=== PATIENT | female | born 1950 ===

== ENCOUNTER 2018-06-16 08:43 | Day surgery (SDC) | payer MEDICARE ==
[~2018-06-16 08:43] MED LIST: Acetaminophen TAB* 325 MG PO PRN; Buffered Lidocaine 0.9% SYRIN* 5 ML/SYR SYRINGE INTRADERM ONE; Cyclopentolate 1% OPTH.SOL* 2 ML BTL ONE; Ketorolac 0.5% OPHTH (NF) 0.5 % 5 ML BTL ONE; Lidocaine 1%* 5 ML VIAL ONE; Neomycin/Polymy/Dex OPHTH.OIN* 3.5 GM ONE; Phenylephrine 2.5% OPTH.SOL* 2 ML BTL ONE; Povidone Iodine 5% OPTH* 30 ML BTL ONE; Tetracaine 0.5% OPTH.SOL 4 ML* 1 DROP BTL ONE; Tropicamide 1% OPTH.SOL* BTL ONE; acetaZOLAMIDE TAB* 250 MG ONE
[2018-06-16] MEDS ORDERED: fentaNYL* 50 MCG/ML 2 ML VIAL (100 MCG VIAL) ONE (10:37)
[2018-06-16] MEDS ORDERED: Midazolam* 1 MG/ML 2 ML VIAL (2 MG) ONE ×2 (10:38→11:24)
[2018-06-16 11:53] VITALS: BP 105/58
--- NOTE | 2018-06-16 22:17 | OP ---
OPERATIVE REPORT: DATE OF OPERATION: 06/16/18 - [facility] DATE OF : 46 SURGEON: Chavo Damon MD ANESTHESIA: Monitored anesthesia care. PRE-OP DIAGNOSIS: Cataract, right eye. POST-OP DIAGNOSIS: Cataract, right eye. OPERATIVE PROCEDURE: Extracapsular cataract extraction of the right eye with intraocular lens implant. IMPLANTS: SN60WF 22.0 diopter lens to the right eye. COMPLICATIONS: None. DESCRIPTION OF PROCEDURE: The patient was given phenylephrine 2.5% and cyclopentolate 1% eye drops to the operative eye in the preoperative area. The patient was taken to the operating room where a time-out was taken to identify the correct patient, side, and site of surgery. The patient's right eye was prepped and draped in the usual sterile fashion with 5% Betadine. A second time -out was taken to verify the correct patient, side, and site of surgery. A lid speculum was placed to the right eye. A 1-mm paracentesis was created in clear cornea in the superotemporal position. Preservative-free 1% lidocaine was injected into the anterior chamber followed by DisCoVisc. A 2.75-mm triplanar incision was created at the inferotemporal position of the cornea. A cystotome initiated a capsulorrhexis, which was completed with Utrata forceps. Hydrodissection of the lens was performed with BSS on a cannula and the lens could be spun in the capsular bag. The phacoemulsification handpiece was used with a [id number]-[id number] technique to remove the nucleus with 20.26 CDE. The I /A handpiece then removed the residual cortical lens material. DisCoVisc was injected to inflate the capsular bag. The planned SN60WF 22.0 diopter lens was injected into the capsular bag. The residual DisCoVisc was removed from the eye with the I/A handpiece. The corneal incisions were hydrated and no leaks occurred at physiologic pressure around 20 mmHg per palpation. The lid speculum was removed and drapes removed. Maxitrol ointment was placed to the surface of the operative eye. An adhesive patch and shield were then placed on the operative eye. The patient was taken to the postoperative area in stable condition. [id number]/[facility] #: [id number] [facility]
== END 2018-06-16 12:00 | disposition home or self-care (01) ==
LOC: OREAST 08:43
PROVIDERS: ATTEND Family Medicine
DX: H25.11 Age-related nuclear cataract, right eye (principal); H43.812 Vitreous degeneration, left eye; H50.05 Alternating esotropia; I25.10 Atherosclerotic heart disease of native coronary artery without angina pectoris; Z95.5 Presence of coronary angioplasty implant and graft; K21.9 Gastro-esophageal reflux disease without esophagitis; Z79.01 Long term (current) use of anticoagulants; J30.89 Other allergic rhinitis
CPT/HCPCS: A9270-GY; J2250; J3010; V2632

== ENCOUNTER 2018-06-23 07:46 | Day surgery (SDC) | payer MEDICARE ==
[~2018-06-23 07:46] MED LIST changes: -Cyclopentolate 1% OPTH.SOL* 2 ML BTL ONE; -Ketorolac 0.5% OPHTH (NF) 0.5 % 5 ML BTL ONE; -Lidocaine 1%* 5 ML VIAL ONE; -Neomycin/Polymy/Dex OPHTH.OIN* 3.5 GM ONE; -Phenylephrine 2.5% OPTH.SOL* 2 ML BTL ONE; -Povidone Iodine 5% OPTH* 30 ML BTL ONE; -Tetracaine 0.5% OPTH.SOL 4 ML* 1 DROP BTL ONE; -Tropicamide 1% OPTH.SOL* BTL ONE; -acetaZOLAMIDE TAB* 250 MG ONE
[2018-06-23] MEDS ORDERED: fentaNYL* 50 MCG/ML 2 ML VIAL (100 MCG VIAL) ONE (09:01)
[2018-06-23] MEDS ORDERED: Midazolam* 1 MG/ML 2 ML VIAL (2 MG) ONE (09:01)
[2018-06-23 10:26] VITALS: BP 103/65
[2018-06-23] MEDS ORDERED: Povidone Iodine 5% OPTH* 30 ML BTL ONE (11:12)
[2018-06-23] MEDS ORDERED: acetaZOLAMIDE TAB* 250 MG ONE (11:12)
[2018-06-23] MEDS ORDERED: Cyclopentolate 1% OPTH.SOL* 2 ML BTL ONE (11:12)
[2018-06-23] MEDS ORDERED: Lidocaine 1%* 5 ML VIAL ONE (11:12)
[2018-06-23] MEDS ORDERED: Neomycin/Polymy/Dex OPHTH.OIN* 3.5 GM ONE (11:12)
[2018-06-23] MEDS ORDERED: Phenylephrine 2.5% OPTH.SOL* 2 ML BTL ONE (11:12)
[2018-06-23] MEDS ORDERED: Tropicamide 1% OPTH.SOL* BTL ONE (11:13)
[2018-06-23] MEDS ORDERED: Ketorolac 0.5% OPHTH (NF) 0.5 % 5 ML BTL ONE (11:13)
[2018-06-23] MEDS ORDERED: Tetracaine 0.5% OPTH.SOL 4 ML* 1 DROP BTL ONE (11:13)
--- NOTE | 2018-06-23 21:36 | OP ---
DATE OF OPERATION: 06/23/18 - [facility] DATE OF : 46 SURGEON: Chavo Damon MD ANESTHESIA: Monitored anesthesia care. PREOPERATIVE DIAGNOSIS: Cataract, left eye. POSTOPERATIVE DIAGNOSIS: Cataract, left eye. OPERATIVE PROCEDURE: Extracapsular cataract extraction of the left eye with intraocular lens implant. IMPLANT: SN60WF 21.5 diopter lens to the left eye. COMPLICATIONS: None. DESCRIPTION OF PROCEDURE: The patient was given phenylephrine 2.5 % and cyclopentolate 1% eye drops to the operative eye in the preoperative area. The patient was taken to the operating room where a time-out was taken to identify the correct patient, site, and side of surgery. The patient's left eye was prepped and draped in the usual sterile fashion with 5% Betadine. A second time- out was taken to verify the correct patient, side, and site of surgery, as well as the correct lens implant. A lid speculum was placed to the left eye. A 1 mm paracentesis blade was used to make a clear corneal incision. Preservative-free 1% lidocaine was injected into the anterior chamber. DisCoVisc was then injected into the anterior chamber. A 2.75 mm keratome blade was used to make a triplanar incision. A cystotome initiated a capsulorrhexis, which was completed with Utrata forceps in a continuous and curvilinear manner. Hydrodissection of the lens was performed with BSS on a cannula. The lens could be spun in a capsular bag. The phacoemulsification handpiece was used with a divide-and- conquer technique to remove the nucleus. The I/A handpiece then removed the residual cortical lens material. DisCoVisc was injected to inflate the capsular bag. The planned SN60WF 21.5 diopter lens was injected into the capsular bag. The residual DisCoVisc was removed from the eye with the I/A handpiece. The corneal incisions were hydrated and no leaks occurred at physiologic pressure around 20 mmHg per palpation. The lid speculum was removed and drapes were removed. Maxitrol ointment was placed to the surface of the operative eye. An adhesive patch and shield was then placed on the operative eye. The patient was taken to the postoperative area in stable condition. [id number]/[facility] #: [id number] [facility]
== END 2018-06-23 10:16 | disposition home or self-care (01) ==
LOC: OREAST 07:46
PROVIDERS: ATTEND Student in an Organized Health Care Education/Training Program
DX: H25.12 Age-related nuclear cataract, left eye (principal); H43.812 Vitreous degeneration, left eye; H50.05 Alternating esotropia; I25.10 Atherosclerotic heart disease of native coronary artery without angina pectoris; Z95.5 Presence of coronary angioplasty implant and graft; I10 Essential (primary) hypertension; E78.2 Mixed hyperlipidemia; K21.9 Gastro-esophageal reflux disease without esophagitis
CPT/HCPCS: A9270-GY; J2250; J3010; V2632

== ENCOUNTER 2018-07-09 07:39 | Day surgery (SDC) | payer MEDICARE ==
[2018-07-09] MEDS ORDERED: Midazolam* 1 MG/ML 2 ML VIAL (2 MG) ONE ×2 (09:10→09:18)
[2018-07-09 10:04] VITALS: BP 132/72
[2018-07-09] MEDS ORDERED: Lidocaine 1%* 5 ML VIAL ONE (10:52)
[2018-07-09] MEDS ORDERED: Phenylephrine 2.5% OPTH.SOL* 2 ML BTL ONE (10:52)
[2018-07-09] MEDS ORDERED: Tetracaine 0.5% OPTH.SOL 4 ML* 1 DROP BTL ONE (10:52)
[2018-07-09] MEDS ORDERED: Ketorolac 0.5% OPHTH (NF) 0.5 % 5 ML BTL ONE (10:52)
[2018-07-09] MEDS ORDERED: Cyclopentolate 1% OPTH.SOL* 2 ML BTL ONE (10:52)
[2018-07-09] MEDS ORDERED: Neomycin/Polymy/Dex OPHTH.OIN* 3.5 GM ONE (10:52)
[2018-07-09] MEDS ORDERED: Tropicamide 1% OPTH.SOL* BTL ONE (10:52)
[2018-07-09] MEDS ORDERED: Povidone Iodine 5% OPTH* 30 ML BTL ONE (10:52)
[2018-07-09] MEDS ORDERED: acetaZOLAMIDE TAB* 250 MG ONE (10:52)
--- NOTE | 2018-07-09 14:07 | OP ---
DATE OF OPERATION: 07/09/18 - [facility] DATE OF : 46 SURGEON: Chavo Damon MD ANESTHESIA: Monitored anesthesia care. PRE-OP DIAGNOSIS: Retained lens fragments, right eye. POST-OP DIAGNOSIS: Retained lens fragments, right eye. OPERATIVE PROCEDURE: Anterior chamber washout and removal of retained lens fragments of the right eye. IMPLANTS: None. COMPLICATIONS: None. DESCRIPTION OF PROCEDURE: The patient was given phenylephrine 2.5% and cyclopentolate 1% eye drops to the operative eye in the preoperative area. The patient was taken to the operating room where a time-out was taken to identify the correct patient, site and side of the surgery. The patient's right eye was prepped and draped in the usual sterile fashion with 5% Betadine. A second time -out was taken to verify the correct patient, site and side of the surgery. A lid speculum was placed to the right eye. A 1-mm paracentesis blade was used to make a clear corneal incision in the superotemporal position. Preservative- free 1% lidocaine was injected into the anterior chamber. DisCoVisc was then injected into the anterior chamber. A 2.75-mm keratome blade was used to re- access the previous triplanar incision. However, the previous plane could not be found and, therefore, a separate triplanar incision was made inferiorly to the previous incision made. The lens fragment could be visualized posterior to the main incision. The phacoemulsification handpiece was then inserted. Upon insertion, the new main incision and previous main incision joined creating a larger main incision, which then resulted in efflux of viscoelastic. The anterior chamber was maintained with irrigation of the phacoemulsification handpiece. The lens fragment cannot be directly visualized any longer. The phacoemulsification handpiece was removed from the eye and the I/A irrigation piece was then inserted and was used to sweep the angle 360 degrees. No further lens fragments were observed. Therefore, it was presumed that the original lens fragment was expressed from the eye along with the viscoelastic. Due to size of main incision, 3 interrupted 10-0 nylon sutures were placed that resulted in a watertight main incision. Again, upon visual inspection of the anterior chamber, no retained lens fragments were observed. The corneal incisions were hydrated and no leaks occurred at physiologic pressure around 20 mmHg per palpation. The lid speculum was removed and drapes removed. Maxitrol ointment was placed on the surface of the operative eye. An adhesive patch and shield were then placed on the operative eye. The patient was taken to the postoperative area in stable condition. [id number]/[facility] #: [id number] [facility]
== END 2018-07-09 10:06 | disposition home or self-care (01) ==
LOC: OREAST 07:39
PROVIDERS: ATTEND Student in an Organized Health Care Education/Training Program
DX: H59.021 Cataract (lens) fragments in eye following cataract surgery, right eye (principal); I10 Essential (primary) hypertension; I25.10 Atherosclerotic heart disease of native coronary artery without angina pectoris; Z95.5 Presence of coronary angioplasty implant and graft; E78.5 Hyperlipidemia, unspecified; K21.9 Gastro-esophageal reflux disease without esophagitis
CPT/HCPCS: A9270-GY; J2250